=== PATIENT | female | born 1990 | race African-American/Black ===

== ENCOUNTER 2020-06-10 19:16 | Observation (INO) | payer OTHER ==
[~2020-06-10] VITALS: Ht 167 cm; Wt 96.2 kg
[2020-06-10] MEDS ORDERED: NIFEdipine 10 MG CAPSULE PO ONE (20:45)
[2020-06-10] MEDS ORDERED: RINGERS SOLUTION,LACTATED 1,000 ML IV ONE (20:45)
[2020-06-10 21:27] LABS: APPEARANCE,URINE CLEAR (CLEAR); BILIRUBIN,URINE NEGATIVE (NEGATIVE); GLUCOSE, URINE (UA) 250 mg/dL (NEGATIVE); KETONES,URINE 40 mg/dL (NEGATIVE); LEUKOCYTE ESTERASE ,URINE NEGATIVE (NEGATIVE); NITRATE,URINE NEGATIVE (NEGATIVE); OCCULT BLOOD,URINE NEGATIVE (NEGATIVE); PROTEIN,URINE NEGATIVE (NEGATIVE)
[2020-06-10] MEDS ORDERED: ACETAMINOPHEN/CODEINE 300-30 MG TABLET PO PRN (21:30)
[2020-06-10 21:44] VITALS: BP 105/56
[2020-06-10 21:52] LABS: RBC,URINE 0-2 /HPF (0-2); WBC,URINE 0-2 /HPF (0-5)
[2020-06-10 21:53] LABS: BACTERIA,URINE None Seen /HPF (None Seen)
[2020-06-10 21:56] LABS: SQUAMOUS EPITHELIAL CELL,UR Few /LPF (None Seen)
[2020-06-10] MEDS ORDERED: MAGNESIUM SULFATE 500 ML IV SCH (22:39)
[2020-06-10] MEDS ORDERED: CALCIUM GLUCONATE 100 MG/ML 10 ML IVP PRN (22:45)
[2020-06-10] MEDS ORDERED: BETAMETHASONE SOLUSPAN 6 MG/ML 5 ML VIAL IM SCH (22:45)
[2020-06-10] MEDS ORDERED: MAGNESIUM SULFATE 4 GM/WATER 100 ML IV ONE (22:45)
[2020-06-11] MEDS: RINGERS SOLUTION,LACTATED 1,000 ML IV SCH ×2 (02:04→13:00)
[2020-06-11] MEDS ORDERED: PREN1TAB80 PO (02:26)
[2020-06-11] MEDS ORDERED: insulin nph SQ (02:26)
[2020-06-11 05:46] LABS: COVID AG,FIA SOURCE NASOPHARYNGEAL
== END 2020-06-11 13:20 | disposition short-term general hospital (02) ==
LOC: OBSVTOIN 19:18 → 4S 19:18 → INTOOBSV 19:18
PROVIDERS: ADMIT Obstetrics & Gynecology; ATTEND Obstetrics & Gynecology
DX: O62.9 Abnormality of forces of labor, unspecified (principal); Z3A.10 10 weeks gestation of pregnancy
CPT/HCPCS: 36415; 80307; 81001; 82731; 83735; 87426; 96361 ×2; 96365; 96372; 99219; J0702; J3475 ×2; J7120 ×2; 96360